=== PATIENT | female | born 1955 | race Caucasian/White ===

== ENCOUNTER 2020-04-28 02:48 | Outpatient (CLI) | payer OTHER, SELFPAY ==
--- NOTE | 2020-04-28 07:30 | DI.MAMMO_ITS ---
EXAM: MAMMO SCREENING CLINICAL HISTORY: screening TECHNIQUE: Mammograms were interpreted according to the usual protocol including computer analysis w [employer] CAD system, tomosynthesis and C-view imaging. COMPARISON: Outside exams from 2009 through 2019 from [facility] mammography in [facility]. FINDINGS: The breasts are composed of heterogeneously dense fibroglandular densities, Breast Density category C . No suspicious masses or suspicious microcalcifications are seen. No skin thickening or abnormal axillary lymph nodes are seen. There has been no significant change from prior exams. IMPRESSION: BI-RADS Category 1, Negative mammogram. Yearly screening mammography is recommended. Breast Density Category C, heterogeneously Dense. The mammogram demonstrates the patient's breast tissue is dense. Dense breast tissue is very common a nd is not abnormal but dense breast tissue can make it harder to find cancer on a mammogram. Also, de nse breast tissue may increase breast cancer risk. This information about the result of the mammogram report was provided to the patient to raise their awareness. Use this report when you speak with the patient about their risks for breast cancer, which includes their family history. At that time, you may recommend additional screening tests (Ultrasound or MRI) as they might be useful based on their r isk. A negative radiographic report should not delay biopsy if a dominant or clinically suspicious mass is present. Up to ten percent of cancers are not identified on mammography. A negative report may reinforce clinical impression. Adenosis and dense breasts may obscure an underlying neoplasm. False positive reports average 6 to 10%.
== END 2020-04-28 03:08 ==
PROVIDERS: PCP Internal Medicine; Visit Provider Internal Medicine
DX: Z12.31 Encounter for screening mammogram for malignant neoplasm of breast (principal)
CPT/HCPCS: 77063; 77067

== ENCOUNTER 2020-04-28 04:06 | Outpatient (CLI) | payer OTHER, SELFPAY ==
[2020-04-28 11:50] LABS: Anion Gap 7.7 mmol/L (3-11); BUN 15 mg/dL (7-18); CO2 29.3 mmol/L (21.0-32.0); CREATININE 0.82 mg/dL (0.55-1.02); Calcium 9.1 mg/dL (8.5-10.1); Calculated LDL 93 mg/dL (<100); Chloride 104 mmol/L (98-107); Cholesterol 199 mg/dL (<200); Glucose 102 mg/dL (74-106); HDL Cholesterol 97 mg/dL (40-60); Potassium 4.6 mmol/L (3.5-5.1); Sodium 141 mmol/L (136-145); Triglyceride 46 mg/dL (<150)
== END 2020-04-28 04:26 ==
PROVIDERS: PCP Internal Medicine; Visit Provider Internal Medicine
DX: I10 Essential (primary) hypertension (principal)
CPT/HCPCS: 36415; 80048; 80061

== ENCOUNTER 2021-09-16 01:31 | Outpatient (CLI) | payer OTHER, SELFPAY ==
[2021-09-16 09:16] LABS: Anion Gap 9.1 mmol/L (3-11); BUN 13 mg/dL (7-18); CO2 26.9 mmol/L (21.0-32.0); CREATININE 0.8 mg/dL (0.55-1.02); Calcium 8.6 mg/dL (8.5-10.1); Chloride 104 mmol/L (98-107); Cholesterol 177 mg/dL (<200); Glucose 101 mg/dL (74-106); HDL Cholesterol 87 mg/dL (40-60); Potassium 4.2 mmol/L (3.5-5.1); Sodium 140 mmol/L (136-145)
[2021-09-16 09:17] LABS: Triglyceride < 25 mg/dL (<150)
--- NOTE | 2021-09-16 09:44 | DI.RAD_ITS ---
Exam(s) XR HIP RT COMPLETE AP PELVIS EXAM: XR HIP RT COMPLETE AP PELVIS CLINICAL HISTORY: rt hip pain, m25.551. TECHNIQUE: 2D digital imaging was performed of the right hip. Two images were obtained. AP pelvis a nd lateral right hip views were obtained. COMPARISON: No exams were available for comparison FINDINGS: BONES: No acute fracture is present. No bony destructive lesion is seen. There is a well corticated o sseous density associated with the ischial tuberosity. It appears old. There is a well-circumscribe d round sclerotic focus in the supra-acetabular region on the right. This may represent a bone islan d. JOINTS: No dislocation present. There is mild joint space narrowing present. SOFT TISSUE: Normal. IMPRESSION: 1. Mild degenerative changes in the right hip. 2. Round sclerotic focus just superior to the right acetabulum. This may represent a bone island. I f the bone scan may be considered for further evaluation and to exclude a malignant cause. DATA REPOSITORY: RADIATION DOSE DELIVERED:
== END 2021-09-16 01:32 | disposition home or self-care (01) ==
LOC: LBO 01:32
PROVIDERS: PCP Internal Medicine; Visit Provider Internal Medicine
DX: M25.551 Pain in right hip (principal); M16.11 Unilateral primary osteoarthritis, right hip; M25.852 Other specified joint disorders, left hip; E78.00 Pure hypercholesterolemia, unspecified; I10 Essential (primary) hypertension
CPT/HCPCS: 36415; 80048; 80061; 73502

== ENCOUNTER → 2022-12-07 00:07 | Outpatient (CLI) | payer OTHER, MEDICARE, SELFPAY ==
--- NOTE | 2022-12-07 08:45 | DI.DEXA_ITS ---
Exam(s) XR DEXA BONE DENSITY W/WO [place] EXAM: XR DEXA BONE DENSITY W/WO [place] CLINICAL HISTORY: screening bone density (baseline), ASYMPTOMATIC MENOPAUSAL STATE, Z78.0 TECHNIQUE: COMPARISON: No exams were available for comparison FINDINGS: Lateral Spine Image: Unremarkable. No compression deformities identified. Left hip: Total T-Score: -0.9 Total Z-Score: 0.4 T- and Z-scores: Within normal limits. Lumbar Spine: Total T-Score: -0.1 Total Z-Score: 1.7 T- and Z-scores: Within normal limits. IMPRESSION: No evidence of osteoporosis.
--- NOTE | 2022-12-07 08:45 | DI.MAMMO_ITS ---
Exam(s) MAMMO SCREENING EXAM: MAMMO SCREENING CLINICAL HISTORY: screening, Z12.39 TECHNIQUE: Bilateral full field digital CC and MLO mammographic images were obtained with 3D tomosyn thesis and utilizing computer aided detection (CAD). COMPARISON: Available for comparison. FINDINGS: Masses/Architectural Distortion: None seen. Microcalcifications: No suspicious pleomorphic-type are seen. Skin Thickening/Nipple Retraction: None. IMPRESSION: 1. No significant interval change with no specific features of malignancy noted. 2. Unless there is more urgent need, screening mammography is recommended, as per [place] guidelines. BI-RADS Category 1 - Negative Breast Density - Category C - Heterogeneously dense Breast density category C or D implies that the patient has dense breast tissue. Dense breast tissue is very common and is not abnormal but dense breast tissue can make it harder to find cancer on a ma mmogram. Also, dense breast tissue may increase their breast cancer risk. This information about the result of the mammogram report was provided to the patient to raise their awareness. Use this report when you speak with the patient about their risks for breast cancer, which includes their family hist ory. At that time, you may recommend for more screening tests (Ultrasound or MRI) as they might be us eful based on their risk. A negative radiographic report should not delay biopsy if a dominant or clinically suspicious mass is present. Up to ten percent of cancers are not identified on mammography. A negative report may reinforce clinical impression. Adenosis and dense breasts may obscure an underlying neoplasm. False positive reports average 6 to 10%. Patient will receive a letter notifying them of these results.
== END ==
PROVIDERS: PCP Nurse Practitioner Adult Health; Visit Provider Nurse Practitioner Adult Health
DX: Z13.820 Encounter for screening for osteoporosis (principal); Z78.0 Asymptomatic menopausal state; Z12.31 Encounter for screening mammogram for malignant neoplasm of breast
CPT/HCPCS: 77063; 77067; 77080

== ENCOUNTER 2023-06-14 11:16 | Day surgery (SDC) | payer BC, SELFPAY ==
--- NOTE | 2023-06-13 21:03 | W.PM.DSUDISC ---
Date of service: 06/14/23 Time of Service: 14:22 Discharge Plan Disposition Patient Disposition: Home Condition: Good Discharge Details Reason For Visit: screening colonoscopy Attending Provider: Saeid Martin Primary Care Provider: Pinky Fay Home Meds and New Rx's Prescriptions: Continued calcium carbonate 500 mg calcium (1,250 mg) tablet,chewable 1,000 mg PO DAILY Patient Comments: gummies per pt ibuprofen 200 mg capsule 600 mg PO Q6H PRN diclofenac sodium [Voltaren] 1 % gel 2 g topical QID PRN Rx Instructions: to hands tretinoin 0.05 % cream 1 applic topical QHS Rx Instructions: pea sized application to face nightly per note dated 07/03/22 cc omega-3 fatty acids 1,000 mg capsule 4,000 mg PO DAILY Qty: 360 3RF Discontinued bisacodyl [Dulcolax (bisacodyl)] 5 mg tablet,delayed release (DR/EC) 5 mg PO ONCE Qty: 4 0RF Rx Instructions: Take per colonoscopy instructions provided by ordering providers office polyethylene glycol 3350 17 gram/dose powder 17 g PO ONCE Qty: 238 0RF Rx Instructions: Take per colonoscopy instructions provided by ordering providers office Discharge Instructions Additional Instructions: Julisa, we were able to complete your colonoscopy today without any difficulty. There are some mild internal hemorrhoids, but nothing to worry about. I also saw a tiny portion of tissue that I thought may be a polyp at first. This was removed. In retrospect, it looks like normal colon tissue. In that regards, he had a negative screening colonoscopy today. Because of the nature of the polyps that you had removed previously, I recommend a 5-year interval screening colonoscopy for your next test. If you have any questions in the meantime, please do not hesitate to call or ask at any point. 1. If tolerated, consume a soft, low fiber diet for 1-2 days. 2[address] Do not drive, drink alcohol, operate machinery, make critical decisions, or do activities that require coordination or balance for 24 hours. 3. Because air was put into your colon during the procedure, expelling air from your rectum (passing gas or farting) is normal. 4. You may not have a bowel movement for 1-3 days because of the colonoscopy prep. This is normal. 5. Go directly to the emergency room if you notice any of the following: Develop chills (warm to touch), or if you have a thermometer and your temperature is above 101 Difficulty breathing or difficultly swallowing Persistent vomiting Severe abdominal pain, other than gas cramps Severe chest pain Black, tarry stools Any bleeding ? exceeding one tablespoon 6. Call your physician if the site where your intravenous was started becomes red, swollen, painful, and warm to touch. 7. Your physician has reviewed your pre-procedure medications. Please continue to take those medications as previously ordered. You will be given specific information/education regarding any changes to your medications before leaving. Stand Alone Forms: Anesthesia Discharge InstBaljinder Florez (DSU) Activity:: Activity as Tolerated Diet:: As Tolerated Discharge Orders Discharge Orders: Discharge Order (Routine); Ordered 06/13/23 Ordered By: Saeid Martin DS: Diagnosis Discharge Diagnosis (1) Encounter for screening colonoscopy: Status: Acute Asessment and Plan: Negative screening colonoscopy today. Based on the nature of the previous polyp, I recommend a 5-year follow-up
--- NOTE | 2023-06-13 21:04 | COLE_ITS ---
Date of service: 06/14/23 Time of Service: 14:24 Colonoscopy Report Date of procedure: 06/14/23 Pre-op diagnosis general: screening colonoscopy Post-op diagnosis procedure note: other (Negative screening colonoscopy) Procedure: Colonoscopy Surgeon: Saeid Martin Anesthesia Type: General:No Airway Estimated blood loss (mL): 5 Pathology: none sent Complications: None Disposition: same day Indications: Julisa is a 68 year old woman with a history of adenomatous polyps who needs her next screening colonoscopy Prep: Miralax/Dulcolax Procedure Start Time: 13:51 Procedure End Time: 14:20 Retraction Time: 18 Findings: Grade 1 internal hemorrhoids Procedure Description: After the induction of monitored anesthetic care, and with the patient in left lateral decubitus position, I began by performing an external anorectal exam.? Perineum and skin were normal, as was the anal verge.? There was no evidence of external hemorrhoids.? Next, I performed a digital rectal exam.? I did not appreciate any abnormal findings.? Next, I advanced a colonoscope into the rectal vault.? I performed retroflexion.? There were grade 1 internal hemorrhoids.? Using insufflation, I then advanced the colonoscope beyond the rectal folds and into the sigmoid colon before advancing towards the cecum.? The quality of the prep was excellent.? The scope was noted to be in the cecum by identification of the ileocecal valve and appendiceal orifice.? I then began withdrawing the colonoscope using repeated irrigation as necessary for full evaluation of the colonic mucosa. ?Once the scope was withdrawn to the level of the rectum, great care was taken to examine portions of the rectal folds.? Around 15 cm from the anal verge was a small portion of elevated tissue. At first I thought it may have been a polyp. On further review with narrowband imaging it appeared as benign tissue. Regardless, was removed with cold forceps. No specimen was sent. Finally, the scope was withdrawn and the patient was brought to the same-day surgery recovery unit as the anesthetic wore off. ?The findings and instructions were shared with the patient prior to discharge. [place] Bowel Prep [place] Bowel Prep Right Colon: 3 Left Colon: 3 Transverse Colon: 3 Total Score: 9
--- NOTE | 2023-06-14 06:22 | W.ANESPRE ---
General Info Date of Service Date Performed: 06/14/23 Height: 5 ft 6 in Weight: 59.421 kg Body Mass Index (BMI): 21.1 Surgical Procedure: Operation Date: 06/14/23 13:05 Proposed Procedure Side Surgeon oneil Martin MD Meds Allergies and Home Medications Allergies Allergy/AdvReac Type Severity Reaction Status Date / Time No Known Allergies Allergy Verified 06/14/23 11:46 Home Medication Medication Instructions Recorded diclofenac sodium 1 % topical gel 2 g topical QID PRN 02/25/20 (Voltaren) calcium carbonate 500 mg calcium 1,000 mg PO DAILY 08/25/20 (1,250 mg) chewable tablet ibuprofen 200 mg capsule 600 mg PO Q6H PRN 08/18/21 tretinoin 0.05 % topical cream 1 applic topical QHS 07/12/22 omega-3 fatty acids 1,000 mg 4,000 mg (4 x 1,000 mg) PO DAILY 07/17/22 capsule #360 caps Current Visit Medications: Current Medications Generic Name Dose Route Start Last Admin Trade Name Freq PRN Reason Stop Dose Admin Hyoscyamine Sulfate 0.125 mg 06/13/23 21:05 Hyoscyamine 0.125 Mg Sl/Oral/Chew SL 07/13/23 21:04 DIRECTED PRN Ringer's Solution 1,000 mls @ 80 mls/hr 06/14/23 06:00 IV 06/14/23 23:59 INFUSION CASSANDRA IV Miscellaneous Supplies 1 each 06/14/23 06:00 Iv Access IV 06/14/23 23:59 DIRECTED CASSANDRA Ondansetron HCl 4 mg 06/13/23 21:05 Ondansetron 4 Mg/2 Ml Vial IVP 07/13/23 21:04 Q4H PRN PRN Nausea / Vomiting Sodium Chloride 0 ml 06/14/23 06:00 Normal Saline Flush 10 Ml Syr IV 06/14/23 23:59 PRN PRN Sodium Chloride 0 ml 06/14/23 06:00 Normal Saline 10 Ml Vial IJ 06/14/23 23:59 DIRECTED PRN Sterile Water 0 ml 06/14/23 06:00 Water,Injection,Sterile 10 Ml Vial IJ 06/14/23 23:59 DIRECTED PRN PFSH Active Problems Active Problems: Problem Status Onset Code Encounter for screening colonoscopy Z12.11 Family history of breast cancer in mother Z80.3 Arthritis of both hands M19.041, M19.042 Colon polyp ~2016 K63.5 Actinic keratoses L57.0 Essential hypertension I10 Medical History Medical History (Updated 06/13/23 @ 21:03 by Saeid Martin MD) Ocular rosacea Migraine Hearing loss Constipation Chronic dryness of both eyes Chest pain Pt. states it was panic attack related nothing cardiac in nature. Surgical History Surgical History H/O colonoscopy with polypectomy (~2016) 2017 History of tonsillectomy and adenoidectomy History of tubal ligation Laparoscopic History of section Tobacco Smoking/Tobacco Use Status: Never Passive smoking exposure: No Alcohol Alcohol Intake: current Alcohol intake frequency: 0-2 drinks per day Alcohol type: beer and wine Substance Use Substance use: Never Substance use type: does not use Vital Signs and Lab Results Vital Signs Most Recent Vital Signs in EMR: Temp Pulse Resp BP Pulse Ox 36.1 C L 48 L 16 166/83 H 99 06/14/23 11:49 06/14/23 11:49 06/14/23 11:49 06/14/23 11:49 06/14/23 11:49 Lab Results Blood Type / Crossmatch: No Data to Display Complete Blood Count: No Data to Display Complete Metabolic Panel: No Data to Display Liver Function Panel: No Data to Display Coagulation Panel: No Data to Display Cardiac Panel: No Data to Display Arterial Blood Gas: No Data to Display Venous Blood Gas: No Data to Display Pancreas Panel: No Data to Display Thyroid Panel: No Data to Display Infectious Disease: No Data to Display Blood Cultures: No Data to Display Toxicology Panel: No Data to Display Anesthesia Assessment and Plan Anesthesia History Personal History: No History of Anesthesia Complications Family History: No Family History of Anesthesia Complications Exercise Tolerance Exercise Tolerance: Metabolic Equivalents>4 Cardiac & Pulmonary Exam Cardiac Exam: Normal S1/S2 Heart Sounds Pulmonary Exam: Clear Bilateral Breath Sounds Implantable Cardiac Device Does patient have a Pacemaker or an ICD?: No Airway Exam Known Difficult Airway: No Mallampati Class: 3 Mouth Opening: Normal (> 3cm) Thyromental Distance: Greater than 3 cm Neck Range of Motion: Full ROM Neck Circumference: Normal Teeth Condition: Normal Dentition ASA Classification ASA Score: ASA 2 Emergency Case?: No NPO Status NPO Status: NPO Clears >2 hours, Solids >8 hours Anesthesia Plan Resuscitation Status: Full Code Anesthesia Technique: General Anesthesia Airway Planned: Natural Airway Monitors Used: Standard Monitors Preoperative Comments:: 68 yo female for colo. Sig PMHx: HTN, never smoker, occ etOH.
[2023-06-14 11:49] VITALS: BP 166/83; PULSE 48; RESP 16; TEMP 36.1; O2SAT 99
[2023-06-14 12:24] VITALS: BMI 21.1
[2023-06-14] MEDS: Lactated Ringers 1,000 ML 80 ML IV (12:32)
[2023-06-14 14:32] VITALS: BP 109/73; PULSE 45; RESP 16; TEMP 36.1; O2SAT 100
[2023-06-14 14:55] VITALS: BP 127/77; PULSE 43; RESP 16; TEMP 36.1; O2SAT 100
--- NOTE | 2023-06-14 15:09 | W.ANESPOSTOP ---
Postoperative Evaluation Date, Time and Location Date Performed: 06/14/23 Time Performed: 14:32 Patient Location: Day Surgery Unit Vital Signs Most Recent Imported Vital Signs: Most Recent Vital Signs Temp Pulse Resp BP Pulse Ox 36.1 C L 45 L 16 109/73 100 06/14/23 14:32 06/14/23 14:32 06/14/23 14:32 06/14/23 14:32 06/14/23 14:32 Pain Score Most Recent Pain Score: Most Recent Pain Score Pain Level 0 06/14/23 14:32 Assessment Mental Status: Awake (Alert & Oriented to Patient Baseline) Airway and Respiratory Function: Patent airway with normal (patient baseline) respiratory exam Cardiovascular Function: Hemodynamically Stable Hydration Status: Adequately Hydrated Nausea & Vomiting: No Nausea or Vomiting Pain: Pt. Denies Any Pain Peripheral Nerve Block: Patient did not receive a nerve block
== END 2023-06-14 15:12 | disposition home or self-care (01) ==
LOC: SUR 11:16
PROVIDERS: PCP Nurse Practitioner Adult Health; Visit Provider Surgery
PROC: 0DJD8ZZ Inspection of Lower Intestinal Tract, Via Natural or Artificial Opening Endoscopic (ICD-10-PCS; CPT 45378; principal; 2023-06-14 13:00)
DX: Z12.11 Encounter for screening for malignant neoplasm of colon (principal); Z86.010 Personal history of colon polyps; I10 Essential (primary) hypertension
CPT/HCPCS: 45378; J2001; J2704

== ENCOUNTER 2023-12-12 00:59 | Outpatient (CLI) | payer BC, SELFPAY ==
--- NOTE | 2023-12-12 07:30 | DI.MAMMO_ITS ---
Exam(s) MAMMO SCREENING EXAM: MAMMO SCREENING CLINICAL HISTORY: screening,Z12.39 TECHNIQUE: Bilateral full field digital CC and MLO mammographic images were obtained with 3D tomosyn thesis and utilizing computer aided detection (CAD). COMPARISON: Available for comparison. FINDINGS: Masses/Architectural Distortion: There is a new 5 mm nodular density in the posterior central left br east on the MLO view. There are no areas of architectural distortion. Microcalcifications: No suspicious pleomorphic-type are seen. Skin Thickening/Nipple Retraction: None. IMPRESSION: 1. New 5 mm nodule in the central left breast. 2. This area should be further evaluated with spot compression view. Limited left breast ultrasound may be indicated at that time. BI-RADS Category 0 - Incomplete: Need additional imaging evaluation Breast Density - Category C - Heterogeneously dense Breast density category C or D implies that the patient has dense breast tissue. Dense breast tissue is very common and is not abnormal but dense breast tissue can make it harder to find cancer on a ma mmogram. Also, dense breast tissue may increase their breast cancer risk. This information about the result of the mammogram report was provided to the patient to raise their awareness. Use this report when you speak with the patient about their risks for breast cancer, which includes their family hist ory. At that time, you may recommend for more screening tests (Ultrasound or MRI) as they might be us eful based on their risk. A negative radiographic report should not delay biopsy if a dominant or clinically suspicious mass is present. Up to ten percent of cancers are not identified on mammography. A negative report may reinforce clinical impression. Adenosis and dense breasts may obscure an underlying neoplasm. False positive reports average 6 to 10%. Patient will receive a letter notifying them of these results.
== END 2023-12-12 01:19 ==
LOC: DI 01:00
PROVIDERS: PCP Nurse Practitioner Adult Health; Visit Provider Nurse Practitioner Adult Health
DX: Z12.31 Encounter for screening mammogram for malignant neoplasm of breast (principal); Z80.3 Family history of malignant neoplasm of breast
CPT/HCPCS: 77063; 77067

== ENCOUNTER 2023-12-17 01:20 | Outpatient (CLI) | payer BC, SELFPAY ==
--- NOTE | 2023-12-17 | DI.MAMMO_ITS ---
Exam(s) MAMMO SCREEN CALL BACK UNI EXAM: MAMMO SCREEN CALL BACK UNI CLINICAL HISTORY: New 5 mm nodule in central lt breast TECHNIQUE: Spot compression views with tomographic imaging were performed. COMPARISON: 12 December 2023 and exams back to 2014. FINDINGS: No suspicious masses or suspicious microcalcifications are seen. No persistent abnormality is seen on the additional views performed. The findings are consistent wit h overlying fibroglandular tissue. There has been no significant change from prior exams. IMPRESSION: BI-RADS Category 1, Negative Yearly screening mammography is recommended. Breast Density - Category C - Heterogeneously dense
== END 2023-12-17 01:40 ==
LOC: DI 01:20
PROVIDERS: PCP Nurse Practitioner Adult Health; Visit Provider Nurse Practitioner Adult Health
DX: Z12.31 Encounter for screening mammogram for malignant neoplasm of breast (principal); N63.24 Unspecified lump in the left breast, lower inner quadrant
CPT/HCPCS: 77063; 77067

== ENCOUNTER 2024-08-04 14:36 | Outpatient (CLI) | payer BC, SELFPAY ==
--- NOTE | 2024-08-04 12:30 | DI.RAD_ITS ---
Exam(s) XR KNEE LT 3V AP,LAT,SHEA EXAM: XR KNEE LT 3V AP,LAT,SHEA CLINICAL HISTORY: acute left knee pain, M25.562. TECHNIQUE: 2D digital imaging was performed. Three views. COMPARISON: No exams were available for comparison FINDINGS: BONES: No acute fracture is present. No bony destructive lesion is seen. JOINTS: The femoral tibial joint spaces are maintained. A joint effusion is seen. There are also j oint space loose body seen the suprapatellar region as well as infrapatellar region and posterior to the femoral condyles. SOFT TISSUE: Normal. IMPRESSION: Multiple joint space loose bodies. DATA REPOSITORY: RADIATION DOSE DELIVERED:
== END 2024-08-04 14:56 ==
LOC: DI 14:36
PROVIDERS: PCP Nurse Practitioner Adult Health; Visit Provider Nurse Practitioner Family
DX: M25.562 Pain in left knee (principal); M17.12 Unilateral primary osteoarthritis, left knee; M23.42 Loose body in knee, left knee; M23.92 Unspecified internal derangement of left knee
CPT/HCPCS: 73562

== ENCOUNTER 2024-08-15 00:31 | Outpatient (CLI) | payer BC, SELFPAY ==
--- NOTE | 2024-08-15 06:30 | DI.MRI_ITS ---
Exam(s) MR LOWER JOINT LT WO EXAM: MR LOWER JOINT LT WO CLINICAL HISTORY: L KNEE PAIN,loose body lt knee,m23.42,m23.92,internal derangement. TECHNIQUE: Multiplanar multisequence MRI was performed. COMPARISON: CR XR KNEE LT 3V AP,LAT,SHEA from 08/04/2024 FINDINGS: BONES: There is no fracture or contusion pattern. Degenerative signal changes and subchondral cysts in the lateral patellar facet and adjacent aspect of the lateral femoral condyle. Subchondral cysts and posterior tibial plateau. Spurring at the femoral condyles and tibial plateaus as well as tibia l spines. JOINTS: Moderate-sized joint effusion is present. 15 millimeter loose body in the suprapatellar spac e. 5 millimeter loose body noted lateral to the tibial spines. 12 by 9 millimeter loose body note d posterior to the femur, superior to the level of the medial femoral condyle. 10 x 4 millimeter loo se body posteriorly and lateral to the posterior cruciate ligament. Two other adjacent smaller loose bodies are suspected. 5 by 7 millimeter loose body posterior to the lateral femoral condyle. Articular cartilage: Patellofemoral joint: Severe cartilage loss at the lateral patellar facet extending down to involvin g ulna underlying bone. Periarticular spurring. Lateral patellar tilt and deviation. There is also thinning of the cartilage overlying the medial facet greater far medially. Medial femoral tibial joint: Mild thinning Lateral femoral tibial joint: Mild thinning LIGAMENTS/TENDONS: Anterior Cruciate: Unremarkable. Posterior Cruciate: Unremarkable. Medial Collateral:Unremarkable. Lateral Collateral ligament complex: Unremarkable. Extensor mechanism: Unremarkable. Medial retinaculum: Unremarkable. Lateral retinaculum: Unremarkable. Popliteus: The tendon appears intact. There is some surrounding fluid which may be extending from th e joint space. There is some thickening and intermediate signal in the distal semi membranous tendon. MENISCI: The medial meniscus is unremarkable. The lateral meniscus is unremarkable. MUSCLES: Unremarkable. SOFT TISSUES: Mild anterior soft tissue swelling. IMPRESSION: Moderate size joint effusion and multiple joint space loose bodies as mentioned above. Severe degenerative changes of the lateral patellofemoral joint Mild Semimembranous tendinosis. DATA REPOSITORY:
== END 2024-08-15 00:51 ==
LOC: DI 00:31
PROVIDERS: PCP Nurse Practitioner Adult Health; Visit Provider Student in an Organized Health Care Education/Training Program
DX: M17.12 Unilateral primary osteoarthritis, left knee (principal); M23.42 Loose body in knee, left knee
CPT/HCPCS: 73721